=== PATIENT | male | born 1985 | race Hispanic/Latino ===

== ENCOUNTER 2018-01-29 00:57 | Inpatient (IN) | payer OTHER, SELFPAY ==
[2018-01-29 01:17] LABS: Hemoglobin 11.8 g/dL (14.0-18.0); Mean Corpuscular HGB CONC 32.7 g/dL (32.0-36.0); Mean Corpuscular Hemoglobin 32.5 pg (27.0-31.0); Mean Corpuscular Volume 99.4 fL (78.0-98.0); Mean Platelet Volume 8.7 fL (7.4-10.4); Platelet Count 136 thou/uL (130-400); RBC Distribution Width 13.3 % (11.5-14.5); Red Blood Cell (RBC) Count 3.64 mill/uL (4.70-6.10); White Blood Cell (WBC) Count 17.6 thou/uL (4.8-10.8)
[2018-01-29 01:31] LABS: Band 7 % (5-11); Eosinophils 2 % (0-10); Lymphocytes 43 % (21-51); MDiff Complete? YES; Monocytes 11 % (0-10); Neutrophil 37 % (42-75)
[2018-01-29 01:36] LABS: INR-International Normal Ratio 1.6; PTT 29.8 SEC (22.9-36.1); Prothrombin Time 18.8 SEC (12.0-14.7)
[2018-01-29 01:38] LABS: ALT (SGPT) 100 U/L (8-55); AST (SGOT) 142 U/L (5-34); Albumin 3.8 g/dL (3.5-5.0); Alcohol 299 mg/dL (Less than 10); Alkaline Phosphatase 109 U/L (40-150); Anion Gap 18 mmol/L (10-20); BUN (Urea Nitrogen) 6 mg/dL (8.9-20.6); Bilirubin, Total 0.6 mg/dL (0.2-1.2); Calc. Creatinine Clearance 0 mL/min (70-130); Calcium 7.9 mg/dL (7.8-10.44); Carbon Dioxide 16 mmol/L (22-29); Chloride 109 mmol/L (98-107); Estimated GFR-MDRD Greater than 90; Globulin 3.6 g/dL (2.4-3.5); Glucose 182 mg/dL (70-105); Potassium 4.1 mmol/L (3.5-5.1); Protein, Total 7.4 g/dL (6.0-8.3); Sodium 139 mmol/L (136-145)
[2018-01-29] MEDS ORDERED: Midazolam HCl 2 mg/2 ml Vial ONE (02:01)
[2018-01-29] MEDS ORDERED: Fentanyl 100 MCG/2 ML VIAL ONE (02:01)
[2018-01-29] MEDS ORDERED: Ketamine 50 MG/ML VIAL ONE (02:01)
[2018-01-29 02:02] LABS: Bilirubin Negative (Negative); Blood, Urine Moderate (Negative); Clarity CLOUDY (Clear); Glucose, Urine (Dipstick) Negative (Negative); Leukocyte Negative (Negative); Nitrite Negative (Negative); Protein, Urine (Dipstick) 30 mg/dL (Neg-Trace); Specific Gravity, Urine 1.007 (1.002-1.036); Urobilinogen 0.2 mg/dL (0.2-1.0); pH, Urine 5.5 (5.0-9.0)
[2018-01-29] MEDS ORDERED: Norepinephrine 8 MG/0.9% NS 250 ML ONE (02:02)
[2018-01-29] MEDS ORDERED: Phenylephrine HCL 10 MG/ML VIAL ONE (02:02)
[2018-01-29 02:05] LABS: Bacteria/HPF None Seen HPF (None Seen); Hyaline Casts/LPF 4-6 HYALINE CAST LPF (0-3 Hyaline); Pathc Cast-AUWi Flag 0.72 (0-2.49); RBC/HPF 0-3 HPF (0-3); Squamous Epithelial 0-3 HPF (0-3); WBC/HPF 0-3 HPF (0-3)
[2018-01-29] MEDS ORDERED: Piperacillin/Tazobactam 3.375 GM VIAL ONE (02:28)
[2018-01-29] MEDS ORDERED: Heparin 10,000 UNITS/1 ML VIAL ONE (02:28)
[2018-01-29] MEDS ORDERED: Calcium Chloride 1 GM/10 ML Abboject SYRINGE ONE ×2 (02:45→11:11)
[2018-01-29] MEDS ORDERED: Insulin Regular 300 UNITS/3 ML VIAL ONE (04:01)
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
[2018-01-29] MEDS ORDERED: Bacitracin Zinc Ointment 30 gm TUBE ONE (04:08)
[2018-01-29] MEDS ORDERED: Propofol 1,000 MG/100 ML VIAL IV ONE (04:26)
[2018-01-29] MEDS ORDERED: TETANUS AND DIPHTHERIA TOX/PF 0.5 ML DISP.SYRIN IM ONE (05:01)
[2018-01-29] MEDS ORDERED: hydrALAZINE 20 MG/ML VIAL SLOW IVP PRN (05:01)
[2018-01-29] MEDS ORDERED: Dextrose 5% in Water 1,000 ML IV PRN ×2 (05:01→14:18)
[2018-01-29] MEDS ORDERED: Ondansetron ODT 4 MG TAB PO PRN (05:01)
[2018-01-29] MEDS ORDERED: Ondansetron HCl/PF 4 MG/2 ML Vial IVP PRN (05:01)
[2018-01-29] MEDS ORDERED: Dextrose 50% Abboject 50 ML SYRINGE SLOW IVP PRN ×2 (05:01→14:18)
[2018-01-29] MEDS ORDERED: Ventilator Sedation Protocol 1 EACH FS SCH (05:01)
[2018-01-29 05:05] VITALS: BMI 28.9
[2018-01-29 05:07] LABS: Actual Bicarbonate (HCO3a) 15.4 mEq/L (22-28); CO2 Tension 32.5 mmHg (35.0-45.0); Calcium, Ionized 1.08 mmol/L (1.12-1.30); Carboxyhemoglobin (COHb) 1.2 gm% (0.0-3.0); Hemoglobin (Hb) 12.7 g/dL (14.0-18.0); O2 Tension (PaO2) 93.9 mmHg (80.0-100.0); Potassium - ABG Lab 4.41 mmol/L (3.70-5.30); pH, Arterial 7.29 (7.35-7.45)
[2018-01-29 05:08] LABS: Puncture Site ALINE
[2018-01-29 05:09] LABS: ALV-art Gradient 143.545 (0-20)
[2018-01-29] MEDS ORDERED: diphenhydrAMINE 50 MG/ML VIAL IVP SCH (05:15)
[2018-01-29] MEDS ORDERED: Propofol BOLUS 1,000 MG/100 ML VIAL IV PRN (05:19)
[2018-01-29] MEDS ORDERED: Fentanyl BOLUS 250 ML IVPB PRN (05:19)
[2018-01-29] MEDS ORDERED: Lorazepam 2 MG/ML VIAL SLOW IVP PRN (05:19)
[2018-01-29] MEDS ORDERED: DISCONTINUE PREVIOUS NARCOTIC PAIN MEDICATIONS AND BENZODIAZEPINES FS SCH (05:19)
[2018-01-29] MEDS ORDERED: Morphine 2 MG/ML SYRINGE SLOW IVP PRN (05:21)
[2018-01-29] MEDS: Sodium Chloride 0.9% 1,000 ML IV SCH ×2 (05:28→12:40)
[2018-01-29] MEDS: fentaNYL Citrate/PF 2,000 MCG in Sodium Chloride 0.9% 60 ML IV SCH ×2 (05:51→18:56)
[2018-01-29 06:05] LABS: Hemoglobin 12.8 g/dL (14.0-18.0)
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
--- NOTE | 2018-01-29 08:12 | CT ---
CT CHEST WITH CONTRAST CT ABDOMEN AND PELVIS WITH CONTRAST CT THORACIC SPINE WITH CONTRAST CT LUMBAR SPINE WITH CONTRAST: Date: 01/29/18 CLINICAL HISTORY: Post-traumatic pain and injury. FINDINGS: There is patient motion, which degrades image quality and does limit evaluation. Notably, this limits the evaluation of the osseous structures, including the ribs and spine, due to prominent irregularit y of the osseous structures from motion which could obscure fractures. There is a prominent degree of high density fluid of the abdomen and pelvis compatible with hemoperitoneum. This does appear most p ronounced in the left upper quadrant adjacent to the spleen where there is heterogeneous high density fluid and irregular patchy contusion. This may therefore relate to injury of splenic vasculature and splenic capsule region. There is, in addition, high density free fluid about the liver and periporta l edema. Interspersed fluid between loops of bowel and about the pancreas is seen. There is retroperi toneal increased density adjacent to the abdominal aorta. There is no post-traumatic aneurysmal dilat ation of the aorta. No discrete dissection is seen within limitations. There is moderate distention o f the urinary bladder. The pulmonary parenchyma is limited by motion artifact. No definite effusion o r discrete pneumothorax. There is recanalization of the umbilical vein. No hydronephrosis or obvious acute pathology of the kidneys or adrenal glands. IMPRESSION: 1. Large volume hemoperitoneum. Etiology is difficult to discretely discern, although may relate to the spleen, given the more pronounced volume and heterogeneity/irregularity of the left upper quadran t. 2. Marked limitation by patient motion. Telephone call findings placed to ER physician, Kyler Gamino, at 0144 hours on 01/29/18. CODE CR. POS: [facility]
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
[2018-01-29] MEDS: Propofol 1,000 MG/100 ML VIAL IV PRN ×2 (10:21→15:47)
--- NOTE | 2018-01-29 10:26 | RAD ---
SEMIUPRIGHT CHEST 1 VIEW: Date: 01/29/18 HISTORY: Intubation tube check. FINDINGS: NG tube in place. Endotracheal tube is in place with the tip approximately 1.0 cm from the tevin, wh ich could probably be pulled back about 1.0 cm for slightly more optimal positioning of the distal tr achea. No pneumothorax or pleural effusion, or other acute process. IMPRESSION: No significant acute process in the chest. Endotracheal tube with the tip approximately 1.0 cm from t he tevin. NG tube in place. POS: [facility]
[2018-01-29 11:00] LABS: Hemoglobin 12.7 g/dL (14.0-18.0)
[2018-01-29] MEDS ORDERED: Succinylcholine Chloride 20 MG/ML 10 ml SYRINGE FS ONE (11:11)
[2018-01-29] MEDS ORDERED: PHENYLEPHRINE-NS 100 MCG/ML 10 ML SYRINGE ONE (11:11)
[2018-01-29] MEDS ORDERED: Calcium Chloride 13.6 MEQ in Sodium Chloride 0.9% 100 ML IVPB SCH (14:15)
[2018-01-29] MEDS ORDERED: HumaLOG 300 UNITS/3 ML VIAL SC PRN (14:18)
[2018-01-29] MEDS ORDERED: Calcium Chloride 1 GM/10 ML Abboject SYRINGE IVP SCH (14:30)
[2018-01-29] MEDS: Oxazepam 10 MG CAP PO SCH ×2 (15:06→21:50)
[2018-01-29] MEDS ORDERED: ISOVUE-370 76%-LOCM 1 ML ONE (15:15)
[2018-01-29 15:45] LABS: Actual Bicarbonate (HCO3a) 17.7 mEq/L (22-28); Base Excess (BEa) -7.3 mEq/L (-2.0 to +3.0); CO2 Tension 34.1 mmHg (35.0-45.0); Calcium, Ionized 1.28 mmol/L (1.12-1.30); Carboxyhemoglobin (COHb) 1.2 gm% (0.0-3.0); Hemoglobin (Hb) 13.1 g/dL (14.0-18.0); O2 Tension (PaO2) 69.2 mmHg (80.0-100.0); Potassium - ABG Lab 4.22 mmol/L (3.70-5.30); pH, Arterial 7.33 (7.35-7.45)
[2018-01-29 15:46] LABS: ALV-art Gradient 173.375 (0-20); Puncture Site LINE
--- NOTE | 2018-01-29 16:04 | RAD ---
FRONTAL VIEW CHEST: Comparison: 01-29-18 Indication: Follow up. Intubation tube check. FINDINGS: Endotracheal tube is present with tube tip above the tevin. There is an enteric catheter traversing the left abdomen below the field of view. There is shallow depth of inspiration with prominence of ca rdiomediastinal silhouette and pulmonary vasculature. No additional significant interval change. IMPRESSION: 1. Supportive lines and tubes as above. 2. Shallow depth of inspiration with prominent cardiac silhouette and pulmonary vasculature which may relate to fluid status. Correlate clinically. 3. As necessary, continued imaging follow up may prove useful. POS: [facility]
[2018-01-29] MEDS: Acetaminophen 1,000 MG in Premix Bag 1 BAG IVPB SCH ×2 (16:06→19:29)
[2018-01-29] MEDS ORDERED: Adenosine 6 MG/2 ML VIAL ONE ×2 (16:12→16:25)
[2018-01-29] MEDS ORDERED: Adenosine 6 MG/2 ML VIAL IVP SCH (16:30)
[2018-01-29 16:56] LABS: #Basophils 0.1 thou/uL (0.0-0.2); #Lymphocytes 1.5 thou/uL (1.20-3.40); %Basophils 0.3 % (0.0-1.0); %Eosinophils 0.2 % (0.0-10.0); %Lymphocytes 8.3 % (21.0-51.0); %Monocytes 11.4 % (0.0-10.0); %Neutrophils 79.9 % (42.0-75.0); Hemoglobin 12.1 g/dL (14.0-18.0); Mean Corpuscular HGB CONC 33.2 g/dL (32.0-36.0); Mean Corpuscular Hemoglobin 31.4 pg (27.0-31.0); Mean Corpuscular Volume 94.6 fL (78.0-98.0); Mean Platelet Volume 8.9 fL (7.4-10.4); Platelet Count 144 thou/uL (130-400); RBC Distribution Width 15.1 % (11.5-14.5); Red Blood Cell (RBC) Count 3.85 mill/uL (4.70-6.10); White Blood Cell (WBC) Count 17.5 thou/uL (4.8-10.8)
[2018-01-29 17:17] LABS: Anion Gap 16 mmol/L (10-20); BUN (Urea Nitrogen) 10 mg/dL (8.9-20.6); Calc. Creatinine Clearance 116 mL/min (70-130); Calcium 9.1 mg/dL (7.8-10.44); Carbon Dioxide 14 mmol/L (22-29); Chloride 113 mmol/L (98-107); Estimated GFR-MDRD 86; Glucose 211 mg/dL (70-105); Magnesium 1.3 mg/dL (1.6-2.6); Phosphorus 4.7 mg/dL (2.3-4.7); Potassium 3.7 mmol/L (3.5-5.1); Sodium 139 mmol/L (136-145)
[2018-01-29] MEDS ORDERED: Sodium Chloride 0.9% 1,000 ML IV SCH ×2 (17:23→17:30)
[2018-01-29] MEDS ORDERED: Magnesium Sulfate 4 GM in Sodium Chloride 0.9% 250 ML 250 ML IVPB SCH (17:45)
[2018-01-29 18:11] LABS: INR-International Normal Ratio 1.3; PTT 24.4 SEC (22.9-36.1); Prothrombin Time 16.4 SEC (12.0-14.7)
[2018-01-29] MEDS ORDERED: Lactated Ringer's 1,000 ML IV SCH (19:00)
[2018-01-29] MEDS: Lactated Ringer's 1,000 ML IV SCH (19:32)
[2018-01-29 23:15] LABS: Hemoglobin 11.3 g/dL (14.0-18.0)
[2018-01-30] MEDS: Acetaminophen 1,000 MG in Premix Bag 1 BAG IVPB SCH ×3 (00:12→11:14)
[2018-01-30] MEDS: Propofol 1,000 MG/100 ML VIAL IV PRN (00:12)
[2018-01-30] MEDS: Lactated Ringer's 1,000 ML IV SCH ×5 (00:17→21:36)
[2018-01-30 04:45] LABS: INR-International Normal Ratio 1.3; PTT 30.4 SEC (22.9-36.1); Prothrombin Time 16.5 SEC (12.0-14.7)
[2018-01-30 04:50] LABS: Anion Gap 9 mmol/L (10-20); BUN (Urea Nitrogen) 9 mg/dL (8.9-20.6); Calc. Creatinine Clearance 151 mL/min (70-130); Calcium 7.9 mg/dL (7.8-10.44); Carbon Dioxide 21 mmol/L (22-29); Chloride 114 mmol/L (98-107); Estimated GFR-MDRD Greater than 90; Glucose 152 mg/dL (70-105); Magnesium 2.1 mg/dL (1.6-2.6); Phosphorus 2.5 mg/dL (2.3-4.7); Potassium 4.4 mmol/L (3.5-5.1); Sodium 140 mmol/L (136-145)
[2018-01-30] MEDS: fentaNYL Citrate/PF 2,000 MCG in Sodium Chloride 0.9% 60 ML IV SCH (05:05)
[2018-01-30 05:10] LABS: #Basophils 0.1 thou/uL (0.0-0.2); #Lymphocytes 1.3 thou/uL (1.20-3.40); #Monocytes 1.9 thou/uL (0.11-0.59); #Neutrophils 12.5 thou/uL (1.40-6.50); %Basophils 0.4 % (0.0-1.0); %Eosinophils 0.3 % (0.0-10.0); %Lymphocytes 8.2 % (21.0-51.0); %Monocytes 12.1 % (0.0-10.0); Hemoglobin 9.8 g/dL (14.0-18.0); Mean Corpuscular HGB CONC 33.5 g/dL (32.0-36.0); Mean Corpuscular Volume 95.4 fL (78.0-98.0); Mean Platelet Volume 8.7 fL (7.4-10.4); PLT Morphology Comment Appears Decreased; Platelet Count 93 thou/uL (130-400); Red Blood Cell (RBC) Count 3.08 mill/uL (4.70-6.10); White Blood Cell (WBC) Count 15.8 thou/uL (4.8-10.8)
[2018-01-30] MEDS: Oxazepam 10 MG CAP PO SCH ×3 (05:56→21:31)
[2018-01-30 07:30] LABS: Actual Bicarbonate (HCO3a) 20.3 mEq/L (22-28); Base Excess (BEa) -4.6 mEq/L (-2.0 to +3.0); CO2 Tension 36.6 mmHg (35.0-45.0); Carboxyhemoglobin (COHb) 0.8 gm% (0.0-3.0); Hemoglobin (Hb) 9.6 g/dL (14.0-18.0); O2 Tension (PaO2) 109.9 mmHg (80.0-100.0); Potassium - ABG Lab 4.49 mmol/L (3.70-5.30); pH, Arterial 7.36 (7.35-7.45)
[2018-01-30 07:31] LABS: Puncture Site LINE
[2018-01-30] MEDS: Folic Acid 1 MG TAB PO SCH (09:25)
[2018-01-30] MEDS: Famotidine/PF 20 mg/2ml Vial SLOW IVP SCH ×2 (09:26→21:32)
[2018-01-30 11:43] LABS: Hemoglobin 8.9 g/dL (14.0-18.0)
[2018-01-30] MEDS ORDERED: HYDROmorphone 10 mg/100 ml CADD IVPB PRN (14:50)
[2018-01-30] MEDS ORDERED: diphenhydrAMINE 25 MG CAP PO PRN (14:50)
[2018-01-30] MEDS ORDERED: diphenhydrAMINE 50 MG/ML VIAL IM PRN (14:50)
[2018-01-30] MEDS ORDERED: Naloxone HCl 0.4 mg/ml Vial IV PRN (14:50)
[2018-01-30] MEDS ORDERED: diphenhydrAMINE 50 MG/ML VIAL IVP PRN (14:50)
[2018-01-30] MEDS ORDERED: Communication Order-Pharmacy FS SCH (15:00)
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
[2018-01-30 17:13] LABS: Hemoglobin 9.5 g/dL (14.0-18.0)
[2018-01-31] MEDS: Oxazepam 10 MG CAP PO SCH ×3 (06:07→21:21)
[2018-01-31] MEDS: Lactated Ringer's 1,000 ML IV SCH (06:13)
[2018-01-31 06:30] LABS: #Basophils 0.1 thou/uL (0.0-0.2); #Eosinphils 0.2 thou/uL (0.0-0.7); #Lymphocytes 1.3 thou/uL (1.20-3.40); #Monocytes 1.6 thou/uL (0.11-0.59); #Neutrophils 9.2 thou/uL (1.40-6.50); %Basophils 0.6 % (0.0-1.0); %Eosinophils 1.4 % (0.0-10.0); %Lymphocytes 10.2 % (21.0-51.0); %Monocytes 12.7 % (0.0-10.0); %Neutrophils 75.1 % (42.0-75.0); Hemoglobin 8.9 g/dL (14.0-18.0); Mean Corpuscular HGB CONC 32.7 g/dL (32.0-36.0); Mean Platelet Volume 9.2 fL (7.4-10.4); Platelet Count 80 thou/uL (130-400); RBC Distribution Width 14.4 % (11.5-14.5); Red Blood Cell (RBC) Count 2.79 mill/uL (4.70-6.10); White Blood Cell (WBC) Count 12.3 thou/uL (4.8-10.8)
[2018-01-31 06:54] LABS: Anion Gap 10 mmol/L (10-20); BUN (Urea Nitrogen) 8 mg/dL (8.9-20.6); Calc. Creatinine Clearance 173 mL/min (70-130); Calcium 8.4 mg/dL (7.8-10.44); Carbon Dioxide 24 mmol/L (22-29); Chloride 109 mmol/L (98-107); Estimated GFR-MDRD Greater than 90; Glucose 112 mg/dL (70-105); Magnesium 2.1 mg/dL (1.6-2.6); Phosphorus 1.3 mg/dL (2.3-4.7); Potassium 3.9 mmol/L (3.5-5.1); Sodium 139 mmol/L (136-145)
[2018-01-31] MEDS ORDERED: Potassium Phosphate 30 MMOL in Sodium Chloride 0.9% 500 ML IVPB SCH (07:00)
[2018-01-31] MEDS ORDERED: Potassium Phosphate 30 MMOL in Sodium Chloride 0.9% 250 ML 250 ML IVPB SCH (07:15)
[2018-01-31] MEDS: Famotidine/PF 20 mg/2ml Vial SLOW IVP SCH ×2 (08:23→21:21)
[2018-01-31] MEDS: Folic Acid 1 MG TAB PO SCH (08:23)
[2018-01-31] MEDS: Acetaminophen 500 MG TAB PO SCH ×2 (12:34→19:51)
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
[2018-01-31] MEDS ORDERED: traMADol HCl 50 MG TAB PO PRN (20:02)
[2018-01-31] MEDS: traMADol HCl 50 MG TAB PO PRN (21:21)
[2018-01-31] MEDS: Ibuprofen 600 MG TAB PO PRN (21:21)
[2018-02-01] MEDS: Acetaminophen 500 MG TAB PO SCH ×5 (00:22→23:52)
[2018-02-01] MEDS: Oxazepam 10 MG CAP PO SCH ×3 (05:17→21:05)
[2018-02-01] MEDS: traMADol HCl 50 MG TAB PO PRN ×3 (05:17→18:22)
[2018-02-01 05:18] LABS: #Basophils 0.1 thou/uL (0.0-0.2); #Eosinphils 0.3 thou/uL (0.0-0.7); #Lymphocytes 1.4 thou/uL (1.20-3.40); #Monocytes 1.1 thou/uL (0.11-0.59); #Neutrophils 6.7 thou/uL (1.40-6.50); %Basophils 0.8 % (0.0-1.0); %Eosinophils 3.4 % (0.0-10.0); %Lymphocytes 14.4 % (21.0-51.0); %Monocytes 11.6 % (0.0-10.0); %Neutrophils 69.8 % (42.0-75.0); Hemoglobin 8.6 g/dL (14.0-18.0); Mean Corpuscular HGB CONC 32.8 g/dL (32.0-36.0); Mean Corpuscular Hemoglobin 31.9 pg (27.0-31.0); Mean Platelet Volume 8.6 fL (7.4-10.4); Platelet Count 90 thou/uL (130-400); White Blood Cell (WBC) Count 9.7 thou/uL (4.8-10.8)
[2018-02-01 05:19] LABS: Anion Gap 10 mmol/L (10-20); BUN (Urea Nitrogen) 13 mg/dL (8.9-20.6); Calc. Creatinine Clearance 168 mL/min (70-130); Calcium 8.4 mg/dL (7.8-10.44); Carbon Dioxide 26 mmol/L (22-29); Chloride 104 mmol/L (98-107); Estimated GFR-MDRD Greater than 90; Glucose 90 mg/dL (70-105); Magnesium 1.9 mg/dL (1.6-2.6); Phosphorus 2.3 mg/dL (2.3-4.7); Potassium 3.3 mmol/L (3.5-5.1); Sodium 137 mmol/L (136-145)
[2018-02-01] MEDS ORDERED: Potassium Phosphate 20 MMOL in Sodium Chloride 0.9% 250 ML 250 ML IVPB SCH (06:45)
[2018-02-01] MEDS ORDERED: Magnesium 2 GM/50 ML 2 GM in Premix Bag 1 BAG IVPB SCH (09:00)
[2018-02-01] MEDS: Polyethylene Glycol 3350 17 GM Packet PO SCH (09:43)
[2018-02-01] MEDS: Ascorbic Acid 500 mg Chewable Tablet PO SCH ×2 (09:43→20:58)
[2018-02-01] MEDS: Senokot S 8.6-50 MG TAB PO SCH ×2 (09:43→20:58)
[2018-02-01] MEDS: Folic Acid 1 MG TAB PO SCH (09:43)
[2018-02-01] MEDS: Ibuprofen 600 MG TAB PO PRN (09:44)
[2018-02-01] MEDS: Famotidine/PF 20 mg/2ml Vial SLOW IVP SCH ×2 (09:44→20:58)
[2018-02-01] MEDS: Enoxaparin Sodium 40 MG/0.4 ML SYRINGE SC SCH (10:37)
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
[2018-02-01] MEDS: Ferrous Sulfate 325 MG TAB PO SCH (18:22)
[2018-02-02] MEDS: Acetaminophen 500 MG TAB PO SCH ×4 (06:12→23:26)
[2018-02-02] MEDS: Oxazepam 10 MG CAP PO SCH ×3 (06:15→20:06)
[2018-02-02 07:13] LABS: Hemoglobin 9.4 g/dL (14.0-18.0); Mean Corpuscular HGB CONC 33.7 g/dL (32.0-36.0); Mean Corpuscular Hemoglobin 32.4 pg (27.0-31.0); Mean Corpuscular Volume 96.3 fL (78.0-98.0); Platelet Count 108 thou/uL (130-400); RBC Distribution Width 14.3 % (11.5-14.5); Red Blood Cell (RBC) Count 2.89 mill/uL (4.70-6.10); White Blood Cell (WBC) Count 8.3 thou/uL (4.8-10.8)
[2018-02-02 07:25] LABS: Anion Gap 11 mmol/L (10-20); BUN (Urea Nitrogen) 9 mg/dL (8.9-20.6); Calc. Creatinine Clearance 181 mL/min (70-130); Calcium 8.4 mg/dL (7.8-10.44); Carbon Dioxide 25 mmol/L (22-29); Chloride 103 mmol/L (98-107); Estimated GFR-MDRD Greater than 90; Glucose 93 mg/dL (70-105); Phosphorus 2.9 mg/dL (2.3-4.7); Potassium 3.1 mmol/L (3.5-5.1); Sodium 136 mmol/L (136-145)
[2018-02-02] MEDS ORDERED: Potassium Chloride 20 MEQ TAB PO SCH (08:45)
[2018-02-02] MEDS: Enoxaparin Sodium 40 MG/0.4 ML SYRINGE SC SCH (09:09)
[2018-02-02] MEDS: Famotidine/PF 20 mg/2ml Vial SLOW IVP SCH ×2 (09:09→20:06)
[2018-02-02] MEDS: Ferrous Sulfate 325 MG TAB PO SCH ×2 (09:10→17:28)
[2018-02-02] MEDS: Senokot S 8.6-50 MG TAB PO SCH ×2 (09:10→20:05)
[2018-02-02] MEDS: traMADol HCl 50 MG TAB PO PRN ×2 (09:10→20:05)
[2018-02-02] MEDS: Folic Acid 1 MG TAB PO SCH (09:10)
[2018-02-02] MEDS: Ascorbic Acid 500 mg Chewable Tablet PO SCH ×2 (09:11→20:05)
[2018-02-02] MEDS: Polyethylene Glycol 3350 17 GM Packet PO SCH (09:11)
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
[2018-02-03] MEDS: traMADol HCl 50 MG TAB PO PRN ×4 (05:24→23:43)
[2018-02-03] MEDS: Oxazepam 10 MG CAP PO SCH ×3 (05:24→19:54)
[2018-02-03] MEDS: Acetaminophen 500 MG TAB PO SCH ×4 (05:24→23:42)
[2018-02-03] MEDS: Ferrous Sulfate 325 MG TAB PO SCH ×2 (08:23→17:51)
[2018-02-03] MEDS: Folic Acid 1 MG TAB PO SCH (08:23)
[2018-02-03] MEDS: Famotidine/PF 20 mg/2ml Vial SLOW IVP SCH (08:24)
[2018-02-03] MEDS: Ascorbic Acid 500 mg Chewable Tablet PO SCH ×2 (08:24→19:54)
[2018-02-03] MEDS: Polyethylene Glycol 3350 17 GM Packet PO SCH (08:24)
[2018-02-03] MEDS: Enoxaparin Sodium 40 MG/0.4 ML SYRINGE SC SCH (08:24)
[2018-02-03] MEDS: Senokot S 8.6-50 MG TAB PO SCH ×2 (08:24→19:50)
[2018-02-03] MEDS: Ibuprofen 600 MG TAB PO PRN (09:53)
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
[2018-02-03] MEDS ORDERED: Potassium Chloride 20 MEQ TAB PO SCH (19:45)
[2018-02-04] MEDS: Oxazepam 10 MG CAP PO SCH (05:38)
[2018-02-04] MEDS: Acetaminophen 500 MG TAB PO SCH (05:38)
[2018-02-04] MEDS: traMADol HCl 50 MG TAB PO PRN (05:38)
[2018-02-04] MEDS: Senokot S 8.6-50 MG TAB PO SCH (09:28)
[2018-02-04] MEDS: Ferrous Sulfate 325 MG TAB PO SCH (09:28)
[2018-02-04] MEDS: Folic Acid 1 MG TAB PO SCH (09:28)
[2018-02-04] MEDS: Polyethylene Glycol 3350 17 GM Packet PO SCH (09:28)
[2018-02-04] MEDS: Ascorbic Acid 500 mg Chewable Tablet PO SCH (09:28)
[2018-02-04] MEDS: Enoxaparin Sodium 40 MG/0.4 ML SYRINGE SC SCH (09:28)
[2018-02-04 12:09] VITALS: BP 143/95; TEMP 98.6
== END 2018-02-04 12:00 | disposition home or self-care (01) | DRG 799 ==
LOC: ERS 00:57 → EDBD 00:57 → SDC/OP 02:02 → CCU 04:11 → SJJU 01-30 20:16
PROVIDERS: ADMIT Specialist; ATTEND Specialist
PROC: 07QP0ZZ Repair Spleen, Open Approach (ICD-10-PCS; principal; 2018-01-29)
PROC: 0DQV0ZZ Repair Mesentery, Open Approach (ICD-10-PCS; 2018-01-29)
PROC: 0CQ1XZZ Repair Lower Lip, External Approach (ICD-10-PCS; 2018-01-29)
PROC: 0CQ0XZZ Repair Upper Lip, External Approach (ICD-10-PCS; 2018-01-29)
PROC: 0HQ1XZZ Repair Face Skin, External Approach (ICD-10-PCS; 2018-01-29)
DX: S36.032A Major laceration of spleen, initial encounter (principal); J96.00 Acute respiratory failure, unspecified whether with hypoxia or hypercapnia; S06.0X9A Concussion with loss of consciousness of unspecified duration, initial encounter; D62 Acute posthemorrhagic anemia; R57.9 Shock, unspecified; S36.893A Laceration of other intra-abdominal organs, initial encounter; S01.511A Laceration without foreign body of lip, initial encounter; S01.81XA Laceration without foreign body of other part of head, initial encounter; E87.6 Hypokalemia; E83.39 Other disorders of phosphorus metabolism; E83.42 Hypomagnesemia; F10.129 Alcohol abuse with intoxication, unspecified; V89.2XXA Person injured in unspecified motor-vehicle accident, traffic, initial encounter
CPT/HCPCS: 36415; 36416; 36430; 51702; 70450; 71045; 71260; 72125; 74177; 80048; 80053; 80307; 81001; 82805; 83735; 83880; 84100; 85025; 85027; 85610; 85730; 86850; 86900; 86901; 93005; 94002; 94003; 94640; 96360; C1781; G0390; G8978-GP-CL; G8979-GP-CJ; G8987-GO-CJ; G8988-GO-CI; J0131; J0153; J1200; J1644; J1650; J1815; J2060; J2250; J2270; J2370; J2405; J2543; J2704; J3010; J3475; J7050; J7620; P9016; P9035; P9045; P9048; P9059; S0028